=== PATIENT | female | born 1950 | race Hispanic/Latino ===

== ENCOUNTER 2018-05-14 17:03 | Inpatient (IN) | payer MEDICARE, OTHER ==
[~2018-05-14] VITALS: Ht 167.6 cm; Wt 68.5 kg
[2018-05-14] MEDS ORDERED: ONDANSETRON HCL INJ 2 MG/ML VIAL IV STA (17:24)
[2018-05-14] MEDS ORDERED: HYDROMORPHONE 1MG/1ML INJ IV STA (17:24)
[2018-05-14 18:57] LABS: BASOPHILS % 0.1 % (0.0-1.0); HEMATOCRIT 25.1 % (34.2-44.1); HEMOGLOBIN 8.7 g/dL (12.0-16.0); LYMPHOCYTES % 7.8 % (18.0-39.1); MEAN CORPUSCULAR HEMOGLOBIN 29.7 pg (28-32); MEAN CORPUSCULAR HGB CONC 34.7 g/dL (31-35); MEAN CORPUSCULAR VOLUME 85.7 fL (81-99); MONOCYTES # (AUTO) 3.2 (0.2-0.8); MONOCYTES % 12.2 % (4.4-11.3); NEUTROPHILS # (AUTO) 20.2 (2.1-6.9); NEUTROPHILS % 77.5 % (38.7-80.0); PLATELET COUNT 601 x10e3/uL (140-360); RED BLOOD COUNT 2.93 x10e6/uL (3.6-5.1); RED CELL DISTRIBUTION WIDTH 18.8 % (11.7-14.4)
[2018-05-14 19:06] LABS: INR 2.21
[2018-05-14 19:07] LABS: PARTIAL THROMBOPLASTIN TIME 62.1 seconds (23.8-35.5)
[2018-05-14] MEDS ORDERED: SODIUM CHLORIDE 0.9% 1000ML 1,000 ML IV ONE (19:15)
[2018-05-14 19:16] LABS: ALANINE AMINOTRANSFERASE 67 IU/L (0-55); ALBUMIN 2.8 g/dL (3.5-5.0); ALBUMIN/GLOBULIN RATIO 0.6 (0.8-2.0); ALKALINE PHOSPHATASE 448 IU/L (40-150); BLOOD UREA NITROGEN 9 mg/dL (7-26); BUN/CREATININE RATIO 13 (6-25); CALCIUM 9.9 mg/dL (8.4-10.2); CARBON DIOXIDE 23 mmol/L (22-29); CHLORIDE 94 mmol/L (98-107); CREATININE, SERUM 0.71 mg/dL (0.57-1.11); EST GLOMERULAR FILTRATION RATE > 60 ML/MIN (60-); GLUCOSE 111 mg/dL (74-118); SODIUM 129 mmol/L (136-145)
[2018-05-14] MEDS ORDERED: SODIUM CHLORIDE 0.9% 50ML 50 ML ONE (20:34)
[2018-05-14] MEDS ORDERED: IOPAMIDOL 370 MG/ML 200 ML INFUS..BTL INJ ONE (20:35)
--- NOTE | 2018-05-14 20:37 | Diagnostic Imaging Report ---
ADDENDUM #1 Addendum: 0.9 cm indeterminate hypodensity in segment 6 of the liver. (Series 2 image 27). Liver measures 16.7 cm in craniocaudad dimension in mid clavicular line. Signed by: Dr. Meliton Medley M.D. on 05/14/2018 8:48 PM ORIGINAL REPORT EXAM: CT Abdomen and Pelvis WITH contrast INDICATION: Cannot keep anything down. \S\SEVERE PELVIC PAIN WITH RADIATION TO LEGS COMPARISON: None. TECHNIQUE: Abdomen and pelvis were scanned utilizing a multidetector helical scanner from the lung base to the pubic symphysis after administration of IV contrast. Coronal and sagittal reformations were obtained. Routine protocol was performed. Scan was performed when during portal venous phase. IV CONTRAST: 100 mL of Isovue 370 ORAL CONTRAST: Water COMPLICATIONS: None RADIATION DOSE: Total DLP: 420.51 mGy*cm Estimated effective dose: (DLP x 0.015 x size factor) mSv CTDIvol has been reviewed. It is below the limits set by the Radiation Protocol Committee (RPC). FINDINGS: LINES and TUBES: None. LOWER THORAX: Tiny bilateral pleural effusions with bilateral lower lobe atelectasis. Small sliding hiatal hernia. Punctate calcified granuloma in the left lower lobe (series 2 image 2). HEPATOBILIARY: No focal hepatic lesions. There is intra- and extra- hepatic biliary dilation likely post cholecystectomy reservoir effect. Common bile duct is enlarged measuring 1.3 cm. GALLBLADDER: There are cholecystectomy clips. SPLEEN: No splenomegaly. PANCREAS: No focal masses or ductal dilatation. Pancreatic duct is mildly prominent measuring up to 0.2 cm in the pancreatic head. ADRENALS: No adrenal nodules KIDNEYS/URETERS: Kidneys enhance symmetrically. No hydronephrosis. No cystic or solid mass lesions. No stones. GI TRACT: No abnormal distention, wall thickening, or evidence of bowel obstruction. Appendix is normal. PELVIC ORGANS/BLADDER: Bladder is distended but otherwise normal. LYMPH NODES: No lymphadenopathy. VESSELS: There is mild atherosclerotic disease in the aorta and major arterial branches. Focal moderate severe narrowing in the origin of the celiac axis and SMA. PERITONEUM / RETROPERITONEUM: No free air or fluid. 3.8 x 3.6 x 4.7 cm enhancing mass in the left retroperitoneum in close proximity to the anterior inferior margins of the left kidney and the left psoas muscle (series 2 image 32). There appears to be indistinct plane between the mass and the left psoas muscle (series 2 image 34). BONES: Levoscoliosis centered at L4-L5. SOFT TISSUES: Unremarkable. IMPRESSION: 1. 4.7 cm enhancing mass in the left retroperitoneum which appears to be arising from the left psoas muscle. A sarcoma should be highly considered. Mass is in close proximity but does not appear to involve the left kidney. Additional consideration would be an abnormal hematoma versus a paraganglioma. 2. Significant intrahepatic and extrahepatic biliary dilatation. This may be related to post cholecystectomy reservoir effect. However, the pancreatic duct is also mildly prominent. Correlate for possible ampullary lesion. 3. Bilateral lower lobe atelectasis. 4. Small sliding hiatal hernia. 5. Moderate to severe focal narrowing at the origin of the celiac axis and SMA. Signed by: Dr. Meliton Medley M.D. on 05/14/2018 8:34 PM
[2018-05-14 20:51] LABS: LYMPHOCYTES % (MANUAL) 3 % (19-48); MONOCYTES % (MANUAL) 13 % (3.4-9.0); NEUTROPHILS % (MANUAL) 84 % (40-74)
[2018-05-14 20:52] LABS: HYPOCHROMASIA SLIGHT; PLATELET ESTIMATE MARKEDLY INCREASED; PLATELET MORPHOLOGY COMMENT NORMAL; RBC MORPHOLOGY COMMENT NORMAL
--- NOTE | 2018-05-14 20:54 | Diagnostic Imaging Report ---
EXAMINATION: CT of the lumbar spine HISTORY: Severe pelvic pain radiating to the lower extremities COMPARISON: None available TECHNIQUE: Multidetector helical axial images were reconstructed from contrast-enhanced abdomen CT from L1 to S1. The images were reconstructed using bone and soft tissue algorithms and were viewed in axial, sagittal, and coronal planes. FINDINGS: Alignment: Normal lumbar lordosis, mild left-sided curvature.. Vertebral bodies:Minimal chronic anterior wedging of the L1 vertebral body. Otherwise normal height and density, no acute displaced fracture. Paraspinal soft tissues: -Ill-defined minimal paraspinal soft tissue swelling-stranding mainly on the right side at L4-L5, with poor definition of the epidural space and thecal sac, as well as mild swelling of the right greater than left posterior paraspinal muscles. Prominent degenerative changes of the right greater than left facet joint with subchondral cyst and erosion. -Partially visualized left retroperitoneal mass inferior to the left renal hilum. -Partially visualized severely distended urinary bladder and minimal amount of free fluid in the cul-de-sac. Intervertebral disks: L1-L2: Mild symmetric disc bulge without stenosis. L2-L3: Mild asymmetric to the right disc bulge and facet hypertrophy with minimal right foraminal narrowing. L3-L4: Minimal asymmetric to the right disc bulge and facet arthrosis with minimal right foraminal narrowing. L4-L5: Prominent degenerative and possibly across this changes of the right facet with periarticular soft tissue swelling. L5-S1: Possible nonspecific soft tissue density within the left foramen.. IMPRESSION: 1. Ill-defined paraspinal soft tissue swelling at L4-L5 particularly around the right L4-5 facet, which may be related to degenerative, inflammatory/infectious or neoplastic processes, a lumbar spine MRI without and with contrast is recommended. 2. Poor visualization of the spinal canal content at L4-L5, also can be evaluated with lumbar spine MRI. 3. Mild multilevel degenerative changes. 4. Partially visualized left retroperitoneal mass, severely distended urinary bladder and minimal amount of free fluid in the cul-de-sac, please see dictation of abdomen/pelvis CT performed on the same day for further detail . Signed by: Dr. Aleida Cabrera M.D. on 05/14/2018 8:51 PM
[2018-05-14 21:20] LABS: BILIRUBIN,URINE 1+ (NEGATIVE); CLARITY,URINE CLEAR (CLEAR); COLOR,URINE YELLOW (YELLOW); KETONES,URINE TRACE (NEGATIVE); LEUKOCYTE ESTERASE ,URINE NEGATIVE (NEGATIVE); NITRITE,URINE NEGATIVE (NEGATIVE); PROTEIN,URINE DIPSTICK TRACE (NEGATIVE); URINE UROBILINOGEN 1 mg/dL (0.2 - 1)
--- NOTE | 2018-05-14 21:23 | Diagnostic Imaging Report ---
CHEST SINGLE (PORTABLE), 05/14/2018 8:38 PM Technique: CHEST SINGLE (PORTABLE) Comparison: None available. Clinical history: Shortness of breath Findings: See Impression Impression: 1. Mildly enlarged cardiomediastinal silhouette. 2. Central vascular congestion. Minimal bibasilar opacity, likely atelectasis. Calcified left upper lobe granuloma. 3. No significant effusion. 4. Contrast is seen in the collecting system from recent CT. Signed by: Dr Lexy Drummond MD on 05/14/2018 9:20 PM
[2018-05-14 21:30] LABS: BACTERIA,URINE RARE /HPF; EPITHELIAL CELLS,URINE FEW /LPF; MUCUS,URINE FEW (RARE); RBC,URINE 0-5 /HPF (0-5)
[2018-05-14] MEDS ORDERED: PIPER-TAZ 3.375 GM 50 ML IV SCH (22:00)
[2018-05-14] MEDS: HYDROMORPHONE 1MG/1ML INJ IV PRN (22:38)
[2018-05-14] MEDS: VANCOMYCIN 1GM/NS 250 ML 250 ML IV SCH (22:38)
[2018-05-14 23:30] VITALS: BP 162/75
[2018-05-15] VITALS (9 sets, daily range): BP systolic 137–176; BP diastolic 65–87
[2018-05-15] MEDS ORDERED: SODIUM CHLORIDE 0.9% 250ML 250 ML ONE ×2 (02:10→19:35)
[2018-05-15] MEDS: ACETAMINOPHEN 325 MG TAB PO PRN ×4 (02:34→20:39)
[2018-05-15 05:26] LABS: BASOPHILS % 0.1 % (0.0-1.0); HEMOGLOBIN 7.7 g/dL (12.0-16.0); LYMPHOCYTES # (AUTO) 2.3 (1.0-3.2); LYMPHOCYTES % 8.5 % (18.0-39.1); MEAN CORPUSCULAR HEMOGLOBIN 29.8 pg (28-32); MEAN CORPUSCULAR HGB CONC 34.8 g/dL (31-35); MEAN CORPUSCULAR VOLUME 85.7 fL (81-99); MONOCYTES # (AUTO) 3.6 (0.2-0.8); MONOCYTES % 13.6 % (4.4-11.3); NEUTROPHILS # (AUTO) 19.6 (2.1-6.9); NEUTROPHILS % 73.7 % (38.7-80.0); PLATELET COUNT 581 x10e3/uL (140-360); RED BLOOD COUNT 2.58 x10e6/uL (3.6-5.1); RED CELL DISTRIBUTION WIDTH 17.6 % (11.7-14.4)
[2018-05-15 05:43] LABS: HEMATOCRIT 22.1 % (34.2-44.1)
[2018-05-15 05:44] LABS: ALANINE AMINOTRANSFERASE 54 IU/L (0-55); ALBUMIN 2.4 g/dL (3.5-5.0); ALBUMIN/GLOBULIN RATIO 0.6 (0.8-2.0); ALKALINE PHOSPHATASE 382 IU/L (40-150); ANION GAP 14.3 mmol/L (8-16); BLOOD UREA NITROGEN 9 mg/dL (7-26); BUN/CREATININE RATIO 14 (6-25); CALCIUM 9.2 mg/dL (8.4-10.2); CARBON DIOXIDE 23 mmol/L (22-29); CHLORIDE 97 mmol/L (98-107); CREATININE, SERUM 0.66 mg/dL (0.57-1.11); EST GLOMERULAR FILTRATION RATE > 60 ML/MIN (60-); GLUCOSE 114 mg/dL (74-118); POTASSIUM 4.3 mmol/L (3.5-5.1); SODIUM 130 mmol/L (136-145)
[2018-05-15 07:02] LABS: LYMPHOCYTES % (MANUAL) 2 % (19-48); MONOCYTES % (MANUAL) 13 % (3.4-9.0); NEUTROPHILS % (MANUAL) 85 % (40-74)
[2018-05-15 07:03] LABS: ANISOCYTOSIS MODERATE; HYPOCHROMASIA SLIGHT; PLATELET ESTIMATE SLIGHTLY INCREASED; PLATELET MORPHOLOGY COMMENT FEW GIANT; RBC MORPHOLOGY COMMENT ABNORMAL
[2018-05-15] MEDS: HYDROMORPHONE 1MG/1ML INJ IV PRN ×5 (08:50→22:50)
[2018-05-15] MEDS: PIPER-TAZ 3.375 GM 50 ML IV SCH ×2 (09:52→19:37)
[2018-05-15] MEDS ORDERED: GADOBENATE DIMEGLUMINE 1 ML IV ONE (10:49)
[2018-05-15] MEDS: VANCOMYCIN 1GM/NS 250 ML 250 ML IV SCH (12:03)
[2018-05-15] MEDS: ONDANSETRON HCL INJ 2 MG/ML VIAL IV PRN ×2 (13:25→19:58)
--- NOTE | 2018-05-15 16:17 | History and Physical ---
PRIMARY CARE PHYSICIAN: Unknown. CHIEF COMPLAINT: Back pain and right hip pain. HISTORY OF PRESENT ILLNESS: This is a 67-year-old woman with a history of hypertension who has been having difficulty with ambulation, now bedbound, but symptoms started getting worse on April 21. Patient states that she developed worsening back pain and right hip pain. She lives alone, but family is involved in care, daughter assisted in bringing her to the hospital outpatient. Patient now is unable to walk, unclear as to whether she has had any fever, chills, or sweats. She is a poor historian. There is limited history. Initial test showed she has bacteremia, sepsis and left retroperitoneal mass as well as lumbar abnormality. She has been admitted for further evaluation and management. PAST MEDICAL HISTORY: Hypertension, coronary artery disease, stable angina, anemia. PAST SURGICAL HISTORY: Cholecystectomy. ALLERGIES: PER ELECTRONIC MEDICAL RECORD. FAMILY/SOCIAL HISTORY: Patient is single. She lives alone. Tattoo. No alcohol, illicit or cigarettes. MEDICATIONS: Per electronic medical record. REVIEW OF SYSTEMS: Denies any chest pain, shortness of breath. Denies any fever, chills, sweats, nausea, vomiting, or diarrhea. PHYSICAL EXAMINATION VITAL SIGNS: Have been reviewed. Temperature as high as 101.5, pulse as high as 111. GENERAL: Tired-appearing woman, resting in bed. HEENT: Anicteric. CARDIOVASCULAR: Normal S1, S2. LUNGS: Moderate breath sounds. ABDOMEN: Soft, nondistended. Mild diffuse nonspecific tenderness in the abdomen. EXTREMITIES: No edema or calf tenderness. BACK: She has tenderness in the mid thoracic and lumbar region. No obvious deficits palpable. She has no obvious rash at that side. MUSCULOSKELETAL: Right hip posterior region is tender, but no point tenderness is noted. No rashes seen. SKIN: Dry. PSYCHIATRIC: Flat affect. Neurological: Alert. She is appropriate. She moves all extremities. LABS: Reviewed. MEDICATIONS: Reviewed. ASSESSMENT: This is a 67-year-old woman 1. Bacteremia. 2. Sepsis. 3. Normocytic anemia, moderate. 4. Hyponatremia. 5. Hyperbilirubinemia. 6. Transaminitis. 7. Urinary tract infection. 8. Left retroperitoneal mass. 9. Lumbar pain, lumbar findings on imaging. 10. Coronary artery disease history. 11. A 3.8 x 3.6 x 4.7 cm enhancing mass in the left retroperitoneum. PLAN 1. Continue IV vancomycin, IV Zosyn and consult infectious disease. 2. Neurosurgery consultation for the finding of paraspinal edema of the L4-L5 region. Follow up MRI. 3. We will consider surgical consultation. Differential noted by radiology as hematoma versus paraganglioma. MRI of lumbar spine was done, but we need further imaging of the abdomen. We will need an MRI of the abdomen to further evaluate this collection versus mass that is seen. 4. We will place patient on low dose IV fluids. We will use SCD for DVT prophylaxis. We will obtain a sed rate. 5. We will consult physical therapy. We utilize Pepcid 20 IV q.12. Follow up by MRI imaging and we assess the patient later today. Job#: [id number] JOSE ARMANDO
[2018-05-15] MEDS ORDERED: FAMOTIDINE 20 MG/2 ML VIAL IV SCH (17:00)
[2018-05-15] MEDS ORDERED: HYDROMORPHONE 1MG/1ML INJ IV ONE (17:10)
--- NOTE | 2018-05-15 17:37 | Consultation ---
DATE OF CONSULTATION: May 15, 2018 REASON FOR CONSULTATION: Low back pain, fever and leg weakness. The patient is a 67-year-old woman who has suffered from low back pain for the past couple of months. For the past week, her condition has rapidly deteriorated. For the past 3 to 4 days she has been unable to use her left leg and stand. She was finally brought to the emergency room last night with severe low back pain, leukocytosis, and a fever of 101. A CT of the abdomen and lumbar spine was performed which revealed a markedly distended urinary bladder, a mass associated with the left iliopsoas muscle just medial to the left kidney, and some vague haziness in the lumbar spine. The patient was admitted and started on antibiotics under the care of the primary care physician last night. This morning patient was admitted to internal medicine and started on IV antibiotics. I was consulted this morning and ordered an MRI of the lumbar spine with and without contrast. The MRI revealed a large epidural process in the lumbar spine extending from L4 to sacrum, likely representing a large epidural abscess. In the meanwhile her blood cultures returned this morning as beginning to grow gram positive cocci in pairs and the chains. On examination, the patient is an ill-appearing woman who is lying in bed. She is alert and oriented. She apparently has not eaten for the past 3 to 4 days and vomiting this morning. Straight leg raising is positive bilaterally, worse on the left. She is able to raise her right leg against gravity but is unable to lift her left leg against gravity. She is unable to pull her heel towards her buttocks slightly on the left side. She is able to wiggle her toes bilaterally. Has 5/5 strength in the dorsiflexion of the right foot and 2/5 strength in dorsiflexion of the left foot. Sensory testing reveals altered sensation in the left leg compared to the right in diffuse nondermatomal fashion. Deep tendon reflexes are absent in the patellar and Achilles tendons and 1+ in the biceps and triceps. I reviewed the MRI of the lumbar spine which reveals a very large multiloculated epidural process with peripheral enhancement extending from L4 to the sacrum. This causes marked constriction of the spinal canal in this region. It has peripheral enhancement. In addition there is some abnormal enhancement in the posterior paraspinal soft tissues. More than likely this represents a lumbar epidural abscess, especially in the setting of her clinical history and her elevated blood count of 26,000 and positive blood cultures. It is likely that the mass in the left iliopsoas is also a psoas abscess with the same organism. The patient has already been started on the appropriate antibiotic treatment. I spoke to the patient and her family and to Dr. Vaughn, the attending physician. The patient needs to be transferred immediately to [facility] and I plan to operate on her first thing in the morning tomorrow. The operation will consist of a multilevel lumbar laminectomy for evacuation of epidural abscess. I have explained to the patient and her family that her condition is critical and epidural abscess can result in permanent paralysis, meningitis and even . I have explained that after the surgery she will require director of business applications intravenous antibiotic treatment. I have explained that is it not clear at this point how much of her lost motor function and lost bladder function she will regain after the surgery. A patient and family understand and accept all these issues and give informed consent to proceed with surgery. I have contacted the transfer center to arrange for her transfer immediately [facility]. Job#: [id number] FRANK
--- NOTE | 2018-05-15 22:04 | Consultation ---
DATE OF CONSULTATION: May 15, 2018 REASON FOR CONSULTATION: Sepsis and bacteremia. Thank you, Dr. Vaughn and Dr. Ramos for asking me to see this patient. HISTORY: The patient is a 67-year-old woman referred for bacteremia and sepsis. She presented to emergency department with lower extremity weakness and inability to stand on her legs. She developed lower back pain about 3 weeks earlier, which she attributed to injury from car seat buckle. The lower back pain progressively got worse and the patient was evaluated outpatient and treated for urinary tract infection without improvement. A few days ago, she developed progressive lower extremity weakness and urinary incontinence on 3 occasions. She has not had bowel movement for several days and vomited a few times. Also, she has developed decreased appetite. She does not recall fever or chills. In the emergency department, she was noted to have "normal vital signs". Initial laboratory studies showed blood leukocyte count of 26,000, serum sodium 129, AST 111, ALT 67, alk phos 448. CT scan of the abdomen and pelvis showed left retroperitoneal mass arising from psoas muscle. CT scan of the lumbar spine showed L4-L5 paraspinal mass. The blood culture later yielded gram-positive cocci in pairs and chains. The patient has been evaluated by the neurosurgical service. PAST MEDICAL HISTORY: Hypertension, coronary artery disease, stable angina, and hemolytic anemia. PAST SURGICAL HISTORY: Cholecystectomy, splenectomy for hemolytic anemia. ALLERGIES: NO KNOWN DRUG ALLERGIES. MEDICATIONS: The current antibiotics are 1. Zosyn 3.375 g IV piggyback q.8 h. 2. Vancomycin 1 g IV piggyback q.12 h. IMMUNIZATIONS: She received pneumococcal vaccination prior to admission. FAMILY HISTORY: Noncontributory. SOCIAL HISTORY: No alcohol or tobacco use. REVIEW OF SYSTEMS: As per history of present illness. EXAMINATION GENERAL: No acute distress. VITAL SIGNS: T-max 101.5, TC 99.8 pulse 108, respiratory rate 18, blood pressure 176 /84, weight 151 lbs. HEENT: Normocephalic. There is no icterus or injection of conjunctivae. There is no ear or nasal discharge. Moist oral mucosa. No pharyngeal erythema or exudate. NECK: Supple. No lymphadenopathy or meningismus. LUNGS: Good air entry bilaterally. HEART: Normal S1 and S2. Regular. ABDOMEN: Soft and nontender. EXTREMITIES: There is no edema, clubbing or cyanosis. SKIN: There is no acute erythema. IT SUPPORT TECHNICIAN: Awake, alert, and oriented to person, place, and time. The motor function in the left lower extremity is 1 and the right lower extremity is 3.. LABORATORY AND DIAGNOSTIC: WBC 26,660, hemoglobin 7.7, platelet 581,000, neutrophils 73.7, lymph 8.5, mono 13.6, eosinophils 0, basophils 0.1. ESR 63, BUN 9, creatinine 0.66, serum sodium 130, AST 70, ALT 54, alk phos 382, total bilirubin 2.7. Lumber spine MRI has been completed, report pending. IMPRESSIONS 1. Septicemia present on admission. 2. L4-L5 diskitis/osteomyelitis with paraspinal abscess present on admission. 3. Spinal cord compression present on admission. 4. Abnormal liver enzymes. 5. Surgical asplenia. PLAN 1. Await transfer to [facility] for surgery. 2. Check blood isolated, identification and sensitivity, and C-reactive protein. 3. Continue antibiotics as prescribed. Job#: [id number] CQ
--- NOTE | 2018-05-16 17:44 | Diagnostic Imaging Report ---
History: 67-year-old female with severe back pain radiating to the right hip for 3 weeks. Recent bone marrow biopsy. Marked leukocytosis. Comparison studies: None Technique: Sagittal T1, T2, STIR, axial T1 and T2, post contrast axial and sagittal T1 Intravenous contrast: 14 cc of MultiHance Findings: Number of lumbar vertebral bodies:Five. Alignment: Normal lumbar lordosis. No scoliosis . Lower thoracic cord: Normal in signal and morphology. The tip of the conus is at L2 . Soft tissues: A solid 4.6 cm left retroperitoneal mass is noted in inferior to the left kidney, abutting the upper most aspect of the left so as. No inflammatory characteristics are noted to be associated to this mass. Paraganglioma is the primary differential diagnosis. Paraspinal muscles: Well preserved. Vertebrae: No compression fractures. Spinal Canal: A large 10.7 x 2 cm rim-enhancing mixed signal collection is present within the spinal canal extending from L3 to S2 the CSF space is completely effaced from L4 through S1 from mass effect. Enhancement extends through the left L5-S1 foramen enhancing material extends posteriorly on both sides of spinous process at L4 and L5. Appearance is highly concerning for a large epidural abscess. Degenerative changes: L1-L2: Decreased disc space. Spinal canal widely patent. Bilateral neural foramina widely patent. L2-L3: Decreased T2 signal within the disc. Spinal canal widely patent. Bilateral neuroforamen widely patent. L3-L4: Right asymmetric bulging disc with 1.5 mm of mass effect. Mild narrowing of the right foramen. Severe stenosis of the spinal canal from the presumed epidural abscess. L4-L5: Symmetric bulging disc with 3 mm of posterior mass effect. The spinal canal is completely effaced from the presumed abscess. Collection extends extensively along the posterior paraspinal tissues right greater than left. L5-S1: Symmetric bulging disc with 4 mm of posterior mass effect. Spot canal carefully effaced from the presumed abscess. Epidural enhancement extends along the left L5 nerve root. IMPRESSION: 1. Extensive 10 cm epidural abscess from L3 to S2, that involves the left L5 nerve root and the medial paraspinous tissues at L4-L5. 2. Solid left infrarenal retroperitoneal mass Notification: Discussed results with Dr. Lewis on 05/15/2018 at 5:33pm Signed by: Dr. Uriel Leon M.D. on 05/16/2018 5:41 PM
== END 2018-05-15 22:59 | disposition short-term general hospital (02) | DRG 871 ==
LOC: ER 17:03 → ERHOLD 22:11 → MED/SURG3 22:52
PROVIDERS: ADMIT Internal Medicine; ATTEND Internal Medicine
PROC: 30233K1 Transfusion of Nonautologous Frozen Plasma into Peripheral Vein, Percutaneous Approach (ICD-10-PCS; principal; 2018-05-14)
DX: A41.9 Sepsis, unspecified organism (principal); G06.1 Intraspinal abscess and granuloma; N39.0 Urinary tract infection, site not specified; E87.1 Hypo-osmolality and hyponatremia; I10 Essential (primary) hypertension; R26.9 Unspecified abnormalities of gait and mobility; Z74.01 Bed confinement status; D64.9 Anemia, unspecified; I25.10 Atherosclerotic heart disease of native coronary artery without angina pectoris; E80.6 Other disorders of bilirubin metabolism; R74.0 Nonspecific elevation of levels of transaminase and lactic acid dehydrogenase [LDH]; M54.5 Low back pain; R19.09 Other intra-abdominal and pelvic swelling, mass and lump; N32.89 Other specified disorders of bladder
CPT/HCPCS: 36415; 36430; 51700; 71045; 72131; 72158; 74177; 80053; 81001; 83605; 85025; 85610; 85651; 85730; 86140; 86900; 87040; 87071; 87086; 87186; 87205; 99284; J1170; J2405; J2543; J3370; J7030; J7050; P9017; Q9967